=== PATIENT | female | born 1950 | race Two or more races ===

== ENCOUNTER 2022-01-17 10:18 | Emergency (ER) | payer OTHER ==
[~2022-01-17] VITALS: Ht 162.6 cm; Wt 102.3 kg
[2022-01-17] MEDS ORDERED: traMADol HCL 50 MG TAB PO ONE (11:45)
[2022-01-17 11:47] LABS: Alcohol, Urine < 3.0 mg/dL (0-10); Amphetamine Screen, Urine NEGATIVE (NEGATIVE); Barbiturate Scree,Urine NEGATIVE (NEGATIVE); Benzodiazephine Screen, Urine NEGATIVE (NEGATIVE); Cannabinoid Screen, Urine NEGATIVE (NEGATIVE); Cocaine Screen, Urine NEGATIVE (NEGATIVE); Opiate Scree,Urine NEGATIVE (NEGATIVE); Phencyclidine Screen, Urine NEGATIVE (NEGATIVE)
[2022-01-17 11:53] LABS: Urine Bacteria NONE SEEN /hpf (None Seen); Urine Blood Negative /uL (Negative); Urine Hyaline Cast FEW /lpf (0 - 2); Urine WBC 5 /hpf (0 - 5)
[2022-01-17] MEDS ORDERED: TRAM-297 PO (12:24)
[2022-01-17] MEDS ORDERED: NITR-87 PO (12:24)
[2022-01-17 15:56] VITALS: BP 148/100
== END 2022-01-17 15:58 | disposition home or self-care (01) ==
LOC: ER 10:18
DX: N39.0 Urinary tract infection, site not specified (principal); E11.9 Type 2 diabetes mellitus without complications; I10 Essential (primary) hypertension; Z88.1 Allergy status to other antibiotic agents
CPT/HCPCS: 80307; 81001